=== PATIENT | female | born 2000 | race Caucasian/White ===

== ENCOUNTER 2022-07-11 01:15 | Emergency (ER) | payer OTHER, MEDICAID ==
[2022-07-11] MEDS: Ketorolac 30 MG/ML SDV IM ONE (01:59)
[2022-07-11] MEDS: Ketorolac 60 MG/2 ML SDV IM ONE (02:08)
== END 2022-07-11 02:05 | disposition home or self-care (01) ==
LOC: LB.ED 01:15
DX: S90.32XA Contusion of left foot, initial encounter (principal); W50.0XXA Accidental hit or strike by another person, initial encounter; Y99.0 Civilian activity done for income or pay
CPT/HCPCS: 73630-LT; 96372; 99282; 99283; J1885